=== PATIENT | female | born 1965 | race Asian ===

== ENCOUNTER 2018-02-14 12:43 | Day surgery (SDC) | payer BC ==
[2018-02-14] MEDS ORDERED: CEFAZOLIN 1 GM/50 ML (PMX) 50 ML IVPB (13:18)
[2018-02-14] MEDS ORDERED: MIDAZOLAM 1 MG/ML 2 ML INJ ×2 (15:00)
[2018-02-14] MEDS ORDERED: FENTAnyl 50 MCG/ML VIAL (15:00)
== END 2018-02-14 16:04 | disposition home or self-care (01) ==
LOC: GIL 12:43
DX: Z12.11 Encounter for screening for malignant neoplasm of colon (principal); I10 Essential (primary) hypertension; E78.00 Pure hypercholesterolemia, unspecified; Z79.82 Long term (current) use of aspirin
CPT/HCPCS: 45378; 84703